=== PATIENT | female | born 1990 | race Caucasian/White ===

== ENCOUNTER 2020-05-17 21:17 | Emergency (ER) ==
[~2020-05-17] VITALS: Ht 162.6 cm; Wt 86.8 kg
[2020-05-17] MEDS ORDERED: SEROQUEL50 MG PO (21:23)
[2020-05-17] MEDS ORDERED: CELEXA40 MG PO (21:23)
[2020-05-17] MEDS ORDERED: TOFRANIL25 MG PO (21:24)
[2020-05-17] MEDS ORDERED: KLONOPIN1 MG PO (21:24)
[2020-05-17] MEDS ORDERED: ATARAX 25 MG TA25 MG PO (21:24)
[2020-05-17] MEDS ORDERED: MINIPRESS1 MG PO (21:25)
[2020-05-17 21:38] LABS: BASOPHILS 0.1 % (0-2); HEMOGLOBIN 13.9 g/dL (12-16); IMMATURE GRANULOCYTES 0.1 % (0-5); LYMPHOCYTES 39.7 % (15-50); MCH 28.1 pg (26.0-34.0); MCHC 33.1 g/dL (31.0-37.0); MCV 84.8 fL (80.0-100.0); MEAN PLATELET VOLUME 10.2 fL (7.4-10.4); MONOCYTES 4.9 % (2-11); NEUTROPHILS 52.2 % (40-80); PLATELET COUNT 225 10x3/uL (130-400); RBC 4.95 10x6/uL (4.00-5.40); RDW 14.5 % (11.5-14.5); WBC 7.9 10x3/uL (4.8-10.8)
[2020-05-17 21:49] LABS: ANION GAP 12.6 mmol/L (8-16); CALCIUM 9.2 mg/dL (8.5-10.1); CARBON DIOXIDE 28.1 mmol/L (21.0-32.0); POTASSIUM - SERUM 3.7 mmol/L (3.5-5.1)
[2020-05-17 21:54] LABS: ALBUMIN 3.4 g/dL (3.4-5.0); BILIRUBIN - TOTAL 0.24 mg/dL (0.2-1.3); PROTEIN - SERUM 6.5 g/dL (6.4-8.2)
[2020-05-17 22:23] LABS: BILIRUBIN NEGATIVE (NEGATIVE); KETONE NEGATIVE (NEGATIVE); NITRITE NEGATIVE (NEGATIVE); UROBILINOGEN NORMAL (NORMAL)
[2020-05-17 22:26] LABS: BACTERIA MODERATE /hpf (NONE SEEN); RED CELLS - URINE NONE SEEN /hpf (0-5); WHITE CELLS - URINE 0-5 /hpf (0-5)
[2020-05-17 22:27] LABS: AMORPHOUS SEDIMENT <1+ /lpf (NONE SEEN); HCG URINE NEGATIVE (NEGATIVE)
[2020-05-18] MEDS ORDERED: ULTRAM50 MG PO (00:32)
== END 2020-05-18 01:11 | disposition home or self-care (01) ==
LOC: D.ER 21:17
PROVIDERS: Family Medicine
DX: R10.2 Pelvic and perineal pain (principal); J45.909 Unspecified asthma, uncomplicated; Z72.0 Tobacco use; R10.30 Lower abdominal pain, unspecified

== ENCOUNTER 2020-05-19 11:32 | Emergency (ER) | payer MEDICAID ==
[~2020-05-19] VITALS: Ht 162.6 cm; Wt 91.4 kg
[~2020-05-19 11:32] MED LIST: ATARAX 25 MG TA25 MG PO; CELEXA40 MG PO; KLONOPIN1 MG PO; MINIPRESS1 MG PO; SEROQUEL50 MG PO; TOFRANIL25 MG PO; ULTRAM50 MG PO
[2020-05-19 11:37] VITALS: Ht 162.6 cm; Wt 91.4 kg
[2020-05-19 12:04] LABS: BASOPHILS 0.3 % (0-2); EOSINOPHILS 3.6 % (0-7); HEMATOCRIT 41.7 % (36.0-48.0); HEMOGLOBIN 13.8 g/dL (12-16); IMMATURE GRANULOCYTES 0.3 % (0-5); LYMPHOCYTES 40.2 % (15-50); MCH 28.1 pg (26.0-34.0); MCHC 33.1 g/dL (31.0-37.0); MCV 84.9 fL (80.0-100.0); MEAN PLATELET VOLUME 10.2 fL (7.4-10.4); MONOCYTES 7.9 % (2-11); NEUTROPHILS 47.7 % (40-80); PLATELET COUNT 229 10x3/uL (130-400); RBC 4.91 10x6/uL (4.00-5.40); RDW 14.5 % (11.5-14.5)
[2020-05-19 12:08] LABS: BILIRUBIN NEGATIVE (NEGATIVE); KETONE NEGATIVE (NEGATIVE); NITRITE NEGATIVE (NEGATIVE); UROBILINOGEN NORMAL (NORMAL); WBC 5.9 10x3/uL (4.8-10.8)
[2020-05-19 12:11] LABS: HCG URINE NEGATIVE (NEGATIVE)
[2020-05-19 12:12] LABS: CALC OSMOLALITY 278 mosm/kg (275-300); CALCIUM 8.7 mg/dL (8.5-10.1); CARBON DIOXIDE 24.6 mmol/L (21.0-32.0); CHLORIDE - SERUM 104 mmol/L (98-107); CREATININE - SERUM 0.9 mg/dL (0.6-1.3); GLUCOSE 99 mg/dL (74-106); SODIUM 141 mmol/L (136-145); eGFR NON AFRICAN AMERICAN 78 mL/min (90-120)
[2020-05-19 12:19] LABS: UREA NITROGEN 6 mg/dL (7-18)
[2020-05-19 12:21] LABS: ALBUMIN 3.6 g/dL (3.4-5.0); ALKALINE PHOSPHATASE 178 U/L (30-120); AMYLASE - SERUM 35 U/L (25-115); BILIRUBIN - TOTAL 0.23 mg/dL (0.2-1.3); LIPASE 178 U/L (73-393); PROTEIN - SERUM 6.8 g/dL (6.4-8.2)
[2020-05-19 12:31] LABS: ALT (SGPT) 209 U/L (10-68); TROPONIN-I < 0.017 ng/mL (0.000-0.060)
[2020-05-19 15:06] VITALS: BP 142/86
== END 2020-05-19 14:23 | disposition home or self-care (01) ==
LOC: D.ER 11:32
PROVIDERS: Family Medicine
DX: R10.2 Pelvic and perineal pain (principal); J45.909 Unspecified asthma, uncomplicated; Z72.0 Tobacco use; N93.9 Abnormal uterine and vaginal bleeding, unspecified

== ENCOUNTER 2020-05-28 20:07 | Emergency (ER) | payer MEDICAID ==
[~2020-05-28] VITALS: Ht 162.6 cm; Wt 86.8 kg
[2020-05-28 20:21] VITALS: BP 128/77; Ht 162.6 cm; Wt 86.8 kg
[2020-05-28 21:46] LABS: BASOPHILS 0.1 % (0-2); EOSINOPHILS 3.8 % (0-7); HEMATOCRIT 45.7 % (36.0-48.0); HEMOGLOBIN 14.9 g/dL (12-16); IMMATURE GRANULOCYTES 0.2 % (0-5); LYMPHOCYTES 38.4 % (15-50); MCHC 32.6 g/dL (31.0-37.0); MCV 85.7 fL (80.0-100.0); MEAN PLATELET VOLUME 9.9 fL (7.4-10.4); NEUTROPHILS 51.5 % (40-80); PLATELET COUNT 248 10x3/uL (130-400); RBC 5.33 10x6/uL (4.00-5.40); RDW 14.7 % (11.5-14.5); WBC 8.7 10x3/uL (4.8-10.8)
[2020-05-28 21:57] LABS: ANION GAP 12.5 mmol/L (8-16); CALCIUM 9.9 mg/dL (8.5-10.1); CARBON DIOXIDE 26.1 mmol/L (21.0-32.0); POTASSIUM - SERUM 3.6 mmol/L (3.5-5.1)
[2020-05-28 21:57] LABS: UDS - AMPHET NEGATIVE QUAL (NEGATIVE); UDS - BARB NEGATIVE QUAL (NEGATIVE); UDS - BENZO NEGATIVE QUAL (NEGATIVE); UDS - COCAINE NEGATIVE QUAL (NEGATIVE); UDS - OPIATE NEGATIVE QUAL (NEGATIVE); UDS - PCP NEGATIVE QUAL (NEGATIVE); UDS - THC NEGATIVE QUAL (NEGATIVE)
[2020-05-28 22:10] LABS: BILIRUBIN NEGATIVE (NEGATIVE); KETONE NEGATIVE (NEGATIVE); NITRITE NEGATIVE (NEGATIVE); UROBILINOGEN NORMAL mg/dL (< 2)
[2020-05-28 22:12] LABS: ALBUMIN 4.1 g/dL (3.4-5.0); BILIRUBIN - TOTAL 0.3 mg/dL (0.2-1.3); C-REACTIVE PROTEIN 1.3 mg/dL (0.0-0.9); MAGNESIUM - SERUM 2.2 mg/dL (1.8-2.4); THYROID STIMULATING HORMONE 2.36 uIU/mL (0.36-3.74)
== END 2020-05-29 02:44 | disposition home or self-care (01) ==
LOC: D.ER 20:07
PROVIDERS: Family Medicine
DX: R10.30 Lower abdominal pain, unspecified (principal); J45.909 Unspecified asthma, uncomplicated; Z72.0 Tobacco use

== ENCOUNTER 2020-05-29 12:41 | Emergency (ER) | payer MEDICAID ==
[~2020-05-29] VITALS: Ht 162.6 cm; Wt 84.1 kg
[2020-05-29 12:53] VITALS: BP 108/64; Ht 162.6 cm; Wt 84.1 kg
[2020-05-29 14:00] LABS: BILIRUBIN NEGATIVE (NEGATIVE); KETONE NEGATIVE (NEGATIVE); NITRITE NEGATIVE (NEGATIVE); UROBILINOGEN NORMAL mg/dL (< 2)
[2020-05-29 14:37] LABS: BASOPHILS 0.3 % (0-2); EOSINOPHILS 3.7 % (0-7); HEMATOCRIT 41.3 % (36.0-48.0); HEMOGLOBIN 13.6 g/dL (12-16); IMMATURE GRANULOCYTES 0.5 % (0-5); LYMPHOCYTES 38.3 % (15-50); MCH 27.7 pg (26.0-34.0); MCHC 32.9 g/dL (31.0-37.0); MCV 84.1 fL (80.0-100.0); MEAN PLATELET VOLUME 9.7 fL (7.4-10.4); MONOCYTES 6.1 % (2-11); NEUTROPHILS 51.1 % (40-80); PLATELET COUNT 224 10x3/uL (130-400); RBC 4.91 10x6/uL (4.00-5.40); RDW 14.3 % (11.5-14.5); WBC 7.5 10x3/uL (4.8-10.8)
[2020-05-29 15:00] LABS: CALCIUM 9.2 mg/dL (8.5-10.1); CARBON DIOXIDE 24.8 mmol/L (21.0-32.0); POTASSIUM - SERUM 3.8 mmol/L (3.5-5.1)
[2020-05-29 15:06] LABS: ALBUMIN 3.9 g/dL (3.4-5.0); BILIRUBIN - TOTAL 0.35 mg/dL (0.2-1.3); PROTEIN - SERUM 7.5 g/dL (6.4-8.2)
== END 2020-05-29 16:10 | disposition home or self-care (01) ==
LOC: D.ER 12:41
PROVIDERS: Family Medicine
DX: R10.84 Generalized abdominal pain (principal); G89.29 Other chronic pain; R19.7 Diarrhea, unspecified; J45.909 Unspecified asthma, uncomplicated; Z72.0 Tobacco use

== ENCOUNTER 2020-06-05 11:57 | Emergency (ER) | payer MEDICAID ==
[~2020-06-05] VITALS: Ht 162.6 cm; Wt 86.8 kg
[2020-06-05 12:06] VITALS: Ht 162.6 cm; Wt 86.8 kg
[2020-06-05 12:36] LABS: BILIRUBIN NEGATIVE (NEGATIVE); KETONE NEGATIVE (NEGATIVE); NITRITE NEGATIVE (NEGATIVE); UROBILINOGEN NORMAL mg/dL (< 2)
[2020-06-05 12:38] LABS: BASOPHILS 0.3 % (0-2); EOSINOPHILS 4.3 % (0-7); HEMATOCRIT 41.8 % (36.0-48.0); HEMOGLOBIN 13.5 g/dL (12-16); IMMATURE GRANULOCYTES 0.3 % (0-5); LYMPHOCYTES 34.1 % (15-50); MCH 27.9 pg (26.0-34.0); MCHC 32.3 g/dL (31.0-37.0); MCV 86.4 fL (80.0-100.0); MEAN PLATELET VOLUME 9.7 fL (7.4-10.4); MONOCYTES 6.1 % (2-11); NEUTROPHILS 54.9 % (40-80); PLATELET COUNT 265 10x3/uL (130-400); RBC 4.84 10x6/uL (4.00-5.40); RDW 14.2 % (11.5-14.5); WBC 7.7 10x3/uL (4.8-10.8)
[2020-06-05 12:40] LABS: BACTERIA MODERATE HPF (NONE SEEN); EPITHELIAL CELLS 25-50 /hpf (0-5); WHITE CELLS - URINE 0-5 HPF (0-4)
[2020-06-05 12:44] LABS: UDS - AMPHET NEGATIVE QUAL (NEGATIVE); UDS - BARB NEGATIVE QUAL (NEGATIVE); UDS - BENZO POSITIVE QUAL (NEGATIVE); UDS - COCAINE NEGATIVE QUAL (NEGATIVE); UDS - OPIATE NEGATIVE QUAL (NEGATIVE); UDS - PCP NEGATIVE QUAL (NEGATIVE); UDS - THC NEGATIVE QUAL (NEGATIVE)
[2020-06-05 12:46] LABS: CALC OSMOLALITY 275 mosm/kg (275-300); CARBON DIOXIDE 29.5 mmol/L (21.0-32.0); CHLORIDE - SERUM 103 mmol/L (98-107); CREATININE - SERUM 0.9 mg/dL (0.6-1.3); GLUCOSE 75 mg/dL (74-106); POTASSIUM - SERUM 3.5 mmol/L (3.5-5.1); SODIUM 138 mmol/L (136-145); UREA NITROGEN 14 mg/dL (7-18); eGFR NON AFRICAN AMERICAN 78 mL/min (90-120)
[2020-06-05 12:54] LABS: ALBUMIN 3.9 g/dL (3.4-5.0); ALKALINE PHOSPHATASE 226 U/L (30-120); ALT (SGPT) 120 U/L (10-68); AMYLASE - SERUM 34 U/L (25-115); LIPASE 170 U/L (73-393); MAGNESIUM - SERUM 2.2 mg/dL (1.8-2.4); PROTEIN - SERUM 7.5 g/dL (6.4-8.2); TROPONIN-I < 0.017 ng/mL (0.000-0.060)
[2020-06-05] MEDS ORDERED: CHRONULAC30 ML PO (13:26)
[2020-06-05] MEDS ORDERED: LEVSIN/ANASP0.125 MG PO (13:26)
[2020-06-05 14:08] VITALS: BP 123/60
== END 2020-06-05 14:22 | disposition home or self-care (01) ==
LOC: D.ER 11:57
PROVIDERS: Family Medicine
DX: R10.84 Generalized abdominal pain (principal); K59.00 Constipation, unspecified; R94.5 Abnormal results of liver function studies; J45.909 Unspecified asthma, uncomplicated